=== PATIENT | female | born 1940 | race Caucasian/White ===

== ENCOUNTER → 2016-10-29 | Outpatient (CLI) | payer MEDICARE, OTHER ==
[~2016-10-29] MED LIST: ADVAIR 500-501 EACH IH; ADVAIR 5001 DISK W/2 IH; ADVAIR HFA 115-12 GM IH; CALCIUM + D 6001 TA1 PO; COLACE PO; COUMADIN5 MG PO; DIAZEPAM PO; EFFEXOR50 MG PO; HYZAAR 100-25 T1 TAB PO; LOSARTAN POTASS25 MG PO; MULTI-VITAMIN1 EAC1 PO; NABUMETONE PO; NASONEX17 GM; PAXIL PO; PROAIR HFA8.5 GM IH; SINGULAIR PO; SPIRIVA18 MCG INH; TAMOXIFEN10 MG PO; TOPROL XL 50 MG50 MG PO; TOPROL XL50 MG PO; VESICARE5 MG PO; ZYRTEC PO; ZYVOX IV; ZYVOX600 MG PO
--- NOTE | ~2016-10-29 | US77 ---
[facility] A Service of [facility] RADIOLOGY TEXT RESULTS PATIENT: TESSA HENDRICKSON LOCATION: [facility] : 42 UNIT #: [id number] AGE: [address]: Altaf Berry MD SEX: F ORDER DR: [id number] [facility] [address] [place], [place] [address] [id number] O MR#: [id number] Acc #: [id number] NAME: TESSA HENDRICKSON : 1940 SEX: F STUDY DATE/TIME: 10/29/2016 14:38 UNIT: US ROOM: STUDY DESCRIPTION: US Kidney Bilateral Complete Attending Physician: Altaf Berry M.D. Ordering Physician: Altaf Berry M.D. Primary Care Physician: Altaf Berry M.D. MEDICAL IMAGING REPORT This report is preliminary unless electronic signature is present EXAM Renal ultrasound. HISTORY Kidney dysfunction, abnormal labs. TECHNIQUE Grayscale and color Doppler sonographic images were obtained through the kidneys and bladder. FINDINGS Right kidney measures 4.9 x 11.1 x 4.5 cm. Left kidney measures 9.8 x 5.2 x 4.2 cm. No solid or cystic renal masses are seen, and no hydronephrosis is identified. Science Tutor questions cortical thinning within both kidneys; however, when I measured the cortex, it appears to measure within normal size limits. Bladder appears unremarkable. IMPRESSION Normal bilateral renal ultrasound. Please note administration internship questions some cortical thinning bilaterally. However, I measure it within normal limits on the submitted images. Dictated by... Melony Hebert M.D. THIS IS AN ELECTRONICALLY VERIFIED REPORT Melony Hebert M.D. at 10/30/2016 4:49 PM AFF/js TD: 10/29/2016 17:38 [facility] A Service [facility] RADIOLOGY TEXT RESULTS PATIENT: TESSA HENDRICKSON LOCATION: [facility] #: [id number] : 42 UNIT #: [id number] AGE: [address]: Altaf Berry MD SEX: F ORDER DR: JOB #: [id number] MEDICAL IMAGING REPORT Page 1 of 1 COPY
== END | disposition home or self-care (01) ==
LOC: CGUS 14:01
DX: N28.89 Other specified disorders of kidney and ureter (principal)
CPT/HCPCS: 76770

== ENCOUNTER → 2017-02-22 | Outpatient (CLI) | payer MEDICARE, OTHER ==
--- NOTE | ~2017-02-22 | US77 ---
[facility] A Service of [facility] RADIOLOGY TEXT RESULTS PATIENT: MALGORZATA HENDRICKSON LOCATION: [facility] : 41 UNIT #: [id number] AGE: [address]: Felipe Vides MD SEX: F ORDER DR: [id number] [place] [id number] [facility]. [place], [place] [address] [id number] O MR#: [id number] Acc #: [id number] NAME: MALGORZATA HENDRICKSON : 1940 SEX: F STUDY DATE/TIME: 02/22/2017 12:37 UNIT: [facility] ROOM: STUDY DESCRIPTION: US Kidney Bilateral Complete Attending Physician: Kim Vides M.D. Referring Physician: Kim Vdies M.D. Ordering Physician: Kim Vides M.D. Primary Care Physician: Altaf Berry M.D. MEDICAL IMAGING REPORT This report is preliminary unless electronic signature is present EXAM Renal ultrasound INDICATION Proteinuria at last doctors visit. TECHNIQUE Farnsworth-scale and color Doppler sonographic images were obtained through the kidneys and bladder. FINDINGS Images of the right kidney in particular are extremely technically limited. No obvious masses are seen. Right kidney measures 9.6 x 5.4 x 4.2 cm. No hydronephrosis is identified and there is no cortical thinning. The left kidney measures 8.8 x 5.6 x 4.3 cm. Again I do not see any evidence of hydronephrosis. No obvious masses are seen. Urinary bladder appears normal. IMPRESSION Limited visualization of the right kidney. Both kidneys are grossly unremarkable with no obvious masses, hydronephrosis or cortical thinning seen. Dictated by... Melony Hebert M.D. THIS IS AN ELECTRONICALLY VERIFIED REPORT Melony Hebert M.D. at 02/23/2017 5:34 PM FRANNY/girish TD: 02/23/2017 10:46 JOB #: [id number] [facility] A Service of [facility] RADIOLOGY TEXT RESULTS PATIENT: MALGORZATA HENDRICKSON LOCATION: [facility] #: [id number] : 42 UNIT #: [id number] AGE: [address]: Felipe Vides MD SEX: F ORDER DR: MEDICAL IMAGING REPORT Page 1 of 1 COPY
[2017-02-22 13:31] LABS: URINE APPEARANCE CLOUDY; URINE BILIRUBIN NEG (NEG); URINE BLOOD NEG (NEG); URINE COLOR YELLOW; URINE GLUCOSE NEG (NEG); URINE KETONE TRACE (NEG); URINE LEUKOCYTE ESTERASE 2+ (NEG); URINE NITRATE POS (NEG); URINE PH 5.5 (5-8); URINE PROTEIN TRACE (NEG); URINE SPECIFIC GRAVITY 1.025 (1.003-1.035); URINE UROBILINOGEN 0.2 MG/DL (NEG)
[2017-02-22 13:32] LABS: URINE BACTERIA AUWI 4+ (NEGATIVE); URINE SQUAMOUS EPITHELIAL CELL NONE SEEN /[HPF]
[2017-02-22 14:08] LABS: ALBUMIN SERUM 3.8 g/dL (3.5-5.0); BILIRUBIN,TOTAL 0.3 mg/dL (0.2-2.0); BUN/CREATININE RATIO 16.66; CALCIUM SERUM 10.1 mg/dL (8.4-10.2); CREATININE SERUM 1.2 mg/dL (0.6-1.4); GLOM FILT RATE Estimated 44.2 mL/min (>60); PROTEIN TOTAL SERUM 6.9 g/dL (6.0-8.3); URIC ACID 6.4 mg/dL (2.6-7.2)
[2017-02-22 14:14] LABS: URINE SOURCE CLEAN CATCH
[2017-02-24 06:12] LABS: COMPLEMENT C3 195 mg/dL (90-180); COMPLEMENT C4 36 mg/dL (16-47)
[2017-02-26 12:41] LABS: ANA SCREEN Negative (Negative); MYELOPEROXIDASE AB (PNL) <1.0 AI (<1.0); PROTEINASE-3 AB (PNL) <1.0 AI (<1.0)
== END | disposition home or self-care (01) ==
LOC: CGUS 12:05
PROVIDERS: Internal Medicine Nephrology
DX: N17.9 Acute kidney failure, unspecified (principal)
CPT/HCPCS: 36415; 76770; 80053; 81003; 84550; 86021; 86038; 86039; 86160; 86225